=== PATIENT | female | born 1940 | race Caucasian/White ===

== ENCOUNTER 2017-11-14 10:57 | Emergency (ER) | payer MEDICARE, BC ==
--- NOTE | 2017-11-14 11:21 | ERNOTE ---
Medical Problem HPI - Narrative Date of Service: 11/14/17 - General Chief Complaint: General Assessment Time Seen by Provider: 11/14/17 15:05 Source: patient Exam Limitations: no limitations - Immun/Allergies/Home Medications Immunizations: IMMUNIZATION HX Immunizations Up to Date Yes History of Influenza Vaccine Yes Hx Pneumococcal Vaccination Yes Allergies/Adverse Reactions: Allergies penicillin G Allergy (Severe, Verified 11/14/17 11:08) Anaphylaxis Cephalosporins Adverse Reaction (Mild, Verified 11/14/17 11:08) SKIN TINGLY AND SENSITIVE Sulfa (Sulfonamide Antibiotics) Adverse Reaction (Mild, Verified 11/14/17 11:08) SENSITIVE SKIN Home Medications: HOME MEDICATIONS Omeprazole Magnesium [Prilosec Otc] 20 mg PO DAILY 10/13/14 [Last Taken Unknown] Escitalopram Oxalate [Lexapro] 10 mg PO DAILY 11/14/14 [Last Taken Unknown] ALPRAZolam [Xanax] 1 - 2 tab PO TID PRN 10/21/15 [Last Taken Unknown] Cyanocobalamin [Vitamin B-12] 1,000 mcg IJ Q30D 10/21/15 [Last Taken Unknown] Levothyroxine Sodium [Synthroid] 75 mcg PO DAILY 10/21/15 [Last Taken Unknown] Loperamide HCl [Imodium] 2 mg PO PRN PRN 10/21/15 [Last Taken Unknown] Acetaminophen [Tylenol] 500 mg PO Q6H PRN 01/17/16 [Last Taken Unknown] Ferrous Sulfate [Iron] 325 mg PO TID 11/14/17 [Last Taken Unknown] traMADol HCL [Ultram] 50 mg PO QID PRN 11/14/17 [Last Taken Unknown] - History of Present History Narrative: patient referred from clinic with symptoms of right calf swelling and hemoptysis , 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 hemoptysis has been better the last few weeks Timing: constant, intermittent Severity: moderate Modifying Factors - (Improves): Present: rest Modifying Factors - (Worsens): Present: movement Review of Systems - Narrative Narrative: patient appears in no acute dstress - Review of Systems Constitutional: Present: See HPI EYE: Present: no symptoms reported ENT: Present: no symptoms reported, sore throat Respiratory: Present: shortness of breath, other - hemoptysis Cardiology: Present: no symptoms reported Gastrointestinal/Abdominal: Present: no symptoms reported Genitourinary: Present: no symptoms reported Musculoskeletal: Present: no symptoms reported Skin: Present: no symptoms reported Neurological: Present: no symptoms reported Endocrine: Present: no symptoms reported Hematologic/Lymphatic: Present: no symptoms reported Psych: Present: no symptoms reported All Other Systems: All systems neg except as marked - Narrative Narrative: unremarkable - Patient's Past Medical History Patient History - Medical: Anemia, Anxiety, Depression, GERD, Osteoporosis, UTI' S, Other - laryngeal ca Patient History - Cardiac/Respiratory: COPD Patient History - Cancer: Throat Patient History - Surgical Procedures: Colonoscopy, Other Patient History - Other: None LMP (females 10-50): Menopausal - Family History Family History:: no untoward family reactions to anesthesia, no familial bleeding tendencies, no family history of clotting disorders, no family history of premature - Family History mom Family History - Medical: Family History - Cardiac/Respiratory: No pertinent hx Family History - Cancer: No pertinent family hx dad Family History - Medical: Family History - Cardiac/Respiratory: No pertinent hx Family History - Cancer: No pertinent family hx - Social History Living Situations: home Abuse History: No History of abuse Psych History: Hx of Anxiety, Hx of Depression Smoking Status: Former smoker Have you smoked in the past 12 months: No Do you dip or chew tobacco: No Patient requests Smoking Cessation Consult: No Initiate information on Smoking Cessation: No Alcohol Use: none Drug Use: none - Immunizations Immunizations Up to Date: Yes Hx Pneumococcal Vaccination: Yes History of Influenza Vaccine: Yes Physical Exam - Physical Exam General Appearance: Present: mild distress Head Exam: Present: normal inspection, no evidence of injury Eye Exam: Normal inspection: bilateral, PERRL: bilateral, EOMI: bilateral Ears, Nose, Throat: Present: normal ENT inspection, other - tracheostomy Neck: Present: other - tracheostomy Respiratory: Present: no respiratory distress, normal breath sounds, no accessory muscle use, chest nontender, lungs clear Peripheral Pulses: N=norm/S=strong/W=weak/B=bound/A=absent: Carotid (R): Normal , Carotid (L): Normal, Radial (R): Normal, Radial (L): Normal, Femoral (R): Normal, Femoral (L): Normal, Dorsalis-pedis (R): Normal, Dorsalis-pedis (L): Normal Gastrointestinal/Abdominal: Present: normal bowel sounds, nontender, nondistended, soft, no organomegaly Back Exam: Present: normal inspection, normal range of motion, no CVA tenderness , no vertebral tenderness Extremity Exam: Present: extremity edema - right calf Neurological Exam: Present: alert, oriented, normal mood/affect, no motor/ sensory deficits DTR: N=norm/NB=norm/brisk/A=abs/DD=dull/dimin/HC=hyperactive: Bicep (R): Normal , Bicep (L): Normal, Tricep (R): Normal, Tricep (L): Normal, Knee (R): Normal, Knee (L): Normal, Ankle (R): Normal, Ankle (L): Normal Skin Exam: Present: normal color, warm/dry Lymphatic Exam: Present: no adenopathy ED Progress - Date and Time Seen: Date and Time: 11/14/17 15:00 improved discuss results of labs and radiology reports,to be dismissed - Vital Signs Vital Signs: Vital Signs 11/14/17 11/14/17 11:03 11:08 Temperature 36.2 C L 36.2 C L Pulse Rate 79 79 Respiratory 14 14 Rate Blood Pressure 110/61 110/61 O2 Sat by Pulse 95 95 Oximetry - EKG EKG: NSR EKG read: Interp. by me - CT/Ultrasound CT/Ultrasound Narrative: ct negative, us no dvt - Progress/Reassessment Chief Complaint: General Assessment Progress:: Pain free at discharge - Transfer of Care Expected Disposition: Discharge Plan - Plan Plan: to be discharged, Departure Clinical Impression: Shortness of breath dyspnea, Hemoptysis, unspecified - Departure Disposition: Home Follow Up Needed Condition: Fair Instructions: Hemoptysis, [id number], Tracheostomy Referrals: Graciela Leal DO [Primary Care Provider] -
[2017-11-14 11:50] LABS: Hematocrit 36.3 % (37.0-47.0); Hemoglobin 12.3 gm/dL (12.5-16.0); Mean Cell Volume 76.7 fl (78-100); Mean Corpuscular Hgb Conc 33.9 g/dl (32-36); Mean Platelet Volume 11.8 fl (6.0-9.5); Neutrophil # 5.3 K/mm3 (1.3-6.0); Neutrophil % 71.1 % (42-75.0); Platelet Count 172 K/mm3 (150-450); Red Blood Count 4.73 M/mm3 (4.2-5.4); Red Cell Distribution Width 14.6 % (11.5-14.0); White Blood Count 7.5 K/mm3 (4.0-10.5)
[2017-11-14 12:04] LABS: Partial Thrombolplastin Time 23.1 Seconds (24-32)
[2017-11-14 12:07] LABS: Troponin I Less than 0.017 ng/ml (0.00-0.10)
[2017-11-14 12:11] LABS: BNP * 79 pg/mL (5-550)
[2017-11-14 13:04] LABS: Albumin * 3.4 gm/dl (3.4-5.0); Anion Gap 12.7 mmol/L (6.8-13.8); BUN/Creatinine Ratio 9.3 (9.0-21.6); Bilirubin, Total 0.2 mg/dL (0.0-1.1); Ca. Corrected For Albumin 8.7 mg/dL (8.4-10.2); Calcium * 8.5 mg/dL (7.9-10.9); Carbon Dioxide 25.5 mmol/L (24-32.6); Potassium 4.2 mmol/L (3.4-4.6); Total Protein 6.9 gm/dL (6.2-8.2)
[2017-11-14 13:57] VITALS: BP 112/64
== END 2017-11-14 15:11 | disposition home or self-care (01) ==
LOC: ER 10:57
DX: R06.00 Dyspnea, unspecified (principal); R04.2 Hemoptysis; D64.9 Anemia, unspecified; K21.9 Gastro-esophageal reflux disease without esophagitis; J44.9 Chronic obstructive pulmonary disease, unspecified; Z85.21 Personal history of malignant neoplasm of larynx

== ENCOUNTER 2019-03-09 19:51 | Observation (INO) ==
[2019-03-09] MEDS ORDERED: ALBUTEROL SULFATE 2.5 MG/0.5 ML VIAL.NEB IH ONE (20:07)
--- NOTE | 2019-03-09 20:11 | ERNOTE ---
Medical Problem HPI - Narrative Date of Service: 03/09/19 - General Chief Complaint: General Assessment Time Seen by Provider: 03/09/19 19:55 Source: patient - Immun/Allergies/Home Medications Immunizations: IMMUNIZATION HX Immunizations Up to Date Yes History of Influenza Vaccine Yes Hx Pneumococcal Vaccination Yes Allergies/Adverse Reactions: Allergies penicillin G Allergy (Severe, Verified 03/09/19 19:55) Anaphylaxis Cephalosporins Adverse Reaction (Mild, Verified 03/09/19 19:55) SKIN TINGLY AND SENSITIVE Sulfa (Sulfonamide Antibiotics) Adverse Reaction (Mild, Verified 03/09/19 19:55) SENSITIVE SKIN prednisone Adverse Reaction (Verified 03/09/19 19:55) hallucination Home Medications: HOME MEDICATIONS Cyanocobalamin [Vitamin B-12] 1,000 mcg IJ Q30D 10/21/15 [Last Taken Unknown] dextran 70-hypromellose (PF) 0.1 %-0.3 % eye drops in a dropperette 1 drp OP 4- 6XD PRN 05/12/18 [Last Taken Unknown] ferrous sulfate 325 mg (65 mg iron) tablet 325 mg PO TID tab 05/12/18 [Last Taken Unknown] tramadol 50 mg tablet See Rx Instructions PO QID PRN tab 05/12/18 [Last Taken Unknown] loratadine 10 mg tablet 10 mg PO DAILY #30 tab 05/29/18 [Last Taken Unknown] triamcinolone acetonide 0.5 % topical ointment 1 applic TP DAILY #15 g 05/29/18 [Last Taken Unknown] white petrolatum 41 % topical ointment 1 applic TP DAILY PRN #99 g 05/29/18 [Last Taken Unknown] Silver Sulfadiazine [Silvadene] 1 appl TP DAILY #85 gm 07/04/18 [Last Taken Unknown] oxyCODONE HCL/ACETAMINOPHEN [Percocet 5 MG/325 MG] 1 tab PO Q4H PRN 5 Days #20 tab 07/04/18 [Last Taken Unknown] alprazolam 0.25 mg tablet See Rx Instructions .ROUTE .COMPLEX PRN #90 tab 12/09/18 [Last Taken Unknown] levothyroxine 75 mcg tablet 75 mcg PO DAILY #30 tab 12/09/18 [Last Taken Unknown] Clobetasol Propionate/Emoll [Clobetasol Emollient 0.05% Crm] 1 gm TOPICAL DAILY PRN #1 cream..g. 01/02/19 [Last Taken Unknown] escitalopram 10 mg tablet 10 mg PO DAILY #90 tab 02/25/19 [Last Taken Unknown] omeprazole magnesium 20 mg tablet,delayed release 20 mg PO DAILY #90 tab 02/25/19 [Last Taken Unknown] HYDROcodone/ACETAMINOPHEN [[place] 5-325] 1 tab PO Q6H PRN #12 tab 03/06/19 [Last Taken Unknown] - History of Present History Narrative: 78-year-old female well-known to the emergency department chronic trach patient. She reports she had generally decreased energy throughout the day today. She took a nap and when she woke up she felt like she could not get a deep breath. She has had a tracheostomy plug multiple times. She got to the ER and was able to actually cough out a bunch of mucus and feels better. No other complaints besides decreased energy and the coughing. No fever. Review of Systems - Review of Systems Constitutional: Present: fatigue EYE: Present: no symptoms reported ENT: Present: no symptoms reported Respiratory: Present: shortness of breath Cardiology: Present: no symptoms reported Gastrointestinal/Abdominal: Present: no symptoms reported Genitourinary: Present: no symptoms reported Musculoskeletal: Present: no symptoms reported Skin: Present: no symptoms reported Neurological: Present: no symptoms reported Endocrine: Present: no symptoms reported Hematologic/Lymphatic: Present: no symptoms reported Psych: Present: no symptoms reported All Other Systems: All systems neg except as marked Medical History (Updated 03/08/19 @ 14:27 by Wilfred Villarreal MD) Abnormal CT of the abdomen (Resolved) Abnormal CT scan, colon (Resolved) GERD (gastroesophageal reflux disease) (Chronic) Anemia, B12 deficiency Onset Date: 2012 Anxiety Onset Date: 06/20/13 COPD (chronic obstructive pulmonary disease) Onset Date: 2012 Depression Onset Date: 06/20/13 GERD (gastroesophageal reflux disease) Onset Date: 06/20/13 Hypothyroid Onset Date: 06/20/13 Iron deficiency anemia Onset Date: 02/15/17 Obesity Onset Date: Unknown Osteoporosis Onset Date: Unknown Psoriasis Onset Date: 02/15/17 Vitamin B12 deficiency Onset Date: 06/20/13 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 Surgical History: Surgical History (Updated 01/14/19 @ 16:09 by KORINA Hoyos) Tracheostomy in place Onset Date: 2005 Tracheostomy status Onset Date: 2005 throat caner treated with radiation. History of colonoscopy Onset Date: ~07/05/[id number]. 10/29/15 [place]-normal. Recheck 5 yrs. 07/05/18 Porter-external hemorrhoids, diverticulosis. No follow up. History of esophagogastroduodenoscopy (EGD) Onset Date: 07/05/18 [place]-clotest negative, hiatal hernia, minimal benign reactive gastropathy/chemical gastritis. History of excision of lesion Onset Date: 07/26/18 Henrich-upper lip-skin cancer History of flexible sigmoidoscopy Onset Date: 06/18/07 Dr. Fox History of incision and drainage Onset Date: 12/25/11 Dr. 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 Unaware of any health issues Healthy adult Uncle Colon cancer 2 uncles-colon cancer-both diagnosed age 60's Grandfather Colon cancer Social History: Preferred Language Mexican Do you have any scientology or No cultural preference? Smoking Status Former smoker Abuse History No History of abuse Psych History Hx of Anxiety,Hx of Depression Alcohol Use sober Drug Use none (Last Updated 02/25/19 @ 16:24 by Mary Jo Wilde MD) No Social History Section defined Physical Exam - Physical Exam General Appearance: Present: wd/wn, alert, other - Sitting up in bed talking through fenestrated trach Head Exam: Present: normal inspection, no evidence of injury Eye Exam: Normal inspection: bilateral, PERRL: bilateral Ears, Nose, Throat: Present: normal ENT inspection, other - Mucous membranes are moist. The patient has healing ecchymoses periorbitally. No CSF otorrhea or rhinorrhea. No hemotympanum. These bruises have faded to essentially nothing now. Little bit of swelling still. Neck: Present: other - Does not have a collar. No JVD. Able to move her neck without a great deal of discomfort Respiratory: Present: other - Patient has frequent coughing. Rare wheezes which are scattered. No rhonchi Cardiovascular/Chest: Present: regular rate, rhythm, no murmur Gastrointestinal/Abdominal: Present: normal bowel sounds, nontender, nondistended, soft Back Exam: Present: normal inspection, normal range of motion Extremity Exam: Present: normal inspection, non-tender, normal range of motion, no edema Neurological Exam: Present: alert, oriented, normal mood/affect, no motor/sensory deficits Skin Exam: Present: normal color Lymphatic Exam: Present: no adenopathy Progress - Results and Orders Patient's Lab Results:: I have reviewed the patient's lab results. - Vital Signs Patient's Vital Signs:: I have reviewed the patient's vital signs. Vital Signs: Vital Signs 03/09/19 19:55 Temperature 36.5 C Pulse Rate 98 Respiratory Rate 22 H Blood Pressure 110/69 O2 Sat by Pulse Oximetry 95 - X-Ray X-Ray #1 X-Ray: chest Interpretation: Interp. by me X-ray Comments: Chest x-ray is performed and compared to yesterday's chest x-ray. There is perhaps a bit more prominence of vessels and parenchyma near the right middle lobe. Essentially unchanged otherwise. - Progress/Reassessment Chief Complaint: General Assessment Progress:: Improved Progress Note-Subjective: 03/09/19 21:33 Patient received a breathing treatment and anxiety medicine. She says she feels a bit better. With a low PaO2 and the frequent visits to the ER, I am worried that she is a set up for returning. I talked to Dr. Anna Siegel and will admit the patient overnight. Continue with breathing treatments and steroids. Suctioning aggressively. Attempt to find placement for her tomorrow. Plan - Plan Plan: The patient previously had a significant gap on electrolytes done about a week ago. She says she has been more fatigued and has been falling over the last 6 weeks. She is scheduled to get a rn cardiac cath Holter monitor tomorrow by cardiology. I think checking a blood gas would be appropriate. The patient says that she has been having more trouble recently going back and forth from home to the hospital with problems. She would like to consider placement in a halfway/assisted living in [place] where she has been before for a month to get stronger. I told her we will check the labs x-ray and gas and see what shows up. Certainly if there is a reason we will admit her to the hospital. Otherwise she is can have to work on getting this as an outpatient Departure Clinical Impression: Hypoxia - Departure Disposition: Short Term Hospital Inpatient Condition: Fair Referrals: Mary Jo Wilde MD [Primary Care Provider] -
[2019-03-09 20:27] LABS: Hematocrit 34.8 % (37.0-47.0); Hemoglobin 11.3 gm/dL (12.5-16.0); Mean Cell Volume 74.8 fl (78-100); Mean Corpuscular Hemoglobin 24.3 pg (27-31); Mean Corpuscular Hgb Conc 32.5 g/dl (32-36); Mean Platelet Volume 11.2 fl (8-12.5); Neutrophil # 3.7 K/mm3 (1.3-6.0); Neutrophil % 59.1 % (42-75.0); Platelet Count 162 K/mm3 (150-450); Red Blood Count 4.65 M/mm3 (4.2-5.4); White Blood Count 6.2 K/mm3 (4.0-10.5)
[2019-03-09 20:45] LABS: Anion Gap 17.4 mmol/L (6.8-13.8); BUN/Creatinine Ratio 6.4 (9.0-21.6); Calcium * 8.8 mg/dL (7.9-10.9); Estimated Creat Clear 28.1; Potassium 3.4 mmol/L (3.4-4.6)
[2019-03-09] MEDS ORDERED: LORazepam 2 MG/ML DISP.SYRIN IV ONE (20:51)
--- NOTE | 2019-03-10 11:25 | HP ---
Chief Complaint - Chief Complaint Date of Service: 03/10/19 Time of Service: 09:06 Chief Complaint: SOB History of Present Illness: 78-year-old female with a past medical history of COPD, anxiety, GERD, hypothyroidism, obesity, throat cancer status post radiation and tracheostomy placement presents from home with complaints of shortness of breath. She has had multiple visits to the emergency department with similar complaints in the past few weeks. In the ER she was found to have mucous plug and was suctioned with good relief of her symptoms. She was admitted for shortness of breath. She also wants help at home due to frequent falling. Medical History (Updated 03/10/19 @ 11:25 by Mary Jo Wilde MD) Abnormal CT of the abdomen (Resolved) Abnormal CT scan, colon (Resolved) GERD (gastroesophageal reflux disease) (Chronic) Anemia, B12 deficiency Onset Date: 2012 Anxiety Onset Date: 06/20/13 COPD (chronic obstructive pulmonary disease) Onset Date: 2012 Depression Onset Date: 06/20/13 GERD (gastroesophageal reflux disease) Onset Date: 06/20/13 Hypothyroid Onset Date: 06/20/13 Iron deficiency anemia Onset Date: 02/15/17 Obesity Onset Date: Unknown Osteoporosis Onset Date: Unknown Psoriasis Onset Date: 02/15/17 Vitamin B12 deficiency Onset Date: 06/20/13 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 Surgical History: Surgical History (Updated 01/14/19 @ 16:09 by KORINA Hoyos) Tracheostomy in place Onset Date: 2005 Tracheostomy status Onset Date: 2005 throat caner treated with radiation. History of colonoscopy Onset Date: ~07/05/18 [id number]. 10/29/15 [place]-normal. Recheck 5 yrs. 07/05/18 Porter-external hemorrhoids, diverticulosis. No follow up. History of esophagogastroduodenoscopy (EGD) Onset Date: 07/05/18 [place]-clotest negative, hiatal hernia, minimal benign reactive gastropathy/chemical gastritis. History of excision of lesion Onset Date: 07/26/18 Henrich-upper lip-skin cancer History of flexible sigmoidoscopy Onset Date: 06/18/07 Dr. Fox History of incision and drainage Onset Date: 12/25/11 Dr. 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 Unaware of any health issues Healthy adult Uncle Colon cancer 2 uncles-colon cancer-both diagnosed age 60's Grandfather Colon cancer Social History: Patient Lives/Resources Home Utilized Preferred Language Armenian Do you have any bahai or No cultural preference? Smoking Status Former smoker Have you smoked in the past 12 No months Do you dip or chew tobacco No Abuse History No History of abuse Psych History Hx of Anxiety,Hx of Depression Alcohol Use sober Drug Use none (Last Updated 02/25/19 @ 16:24 by Mary Jo Wilde MD) No Social History Section defined Review Of Systems (GEN) - Review of Systems Generalized/Overall Review: Absent: Chills, Fever EENTM: Absent: Eye Pain, Ear Pain Respiratory: Absent: Shortness of Breath Cardiac: Absent: Chest Pain Abdominal: Absent: Abdominal Pain Misc: All systems neg except as marked Immunizations: IMMUNIZATION HX Immunizations Up to Date Yes History of Influenza Vaccine Yes Hx Pneumococcal Vaccination Yes Allergies/Adverse Reactions: Allergies Allergy/AdvReac Type Severity Reaction Status Date / Time penicillin G Allergy Severe Anaphylaxis Verified 03/09/19 23:27 Sulfa (Sulfonamide Allergy Mild SENSITIVE Verified 03/09/19 23:27 Antibiotics) SKIN Cephalosporins AdvReac Mild SKIN Verified 03/09/19 23:27 TINGLY AND SENSITIVE prednisone AdvReac hallucinati Verified 03/09/19 23:27 on Home Medications: HOME MEDICATIONS levothyroxine 75 mcg tablet 75 mcg PO DAILY #30 tab 12/09/18 [Last Taken Unknown] Clobetasol Propionate/Emoll [Clobetasol Emollient 0.05% Crm] 1 gm TOPICAL DAILY PRN #1 cream..g. 01/02/19 [Last Taken Unknown] escitalopram 10 mg tablet 10 mg PO DAILY #90 tab 02/25/19 [Last Taken Unknown] omeprazole magnesium 20 mg tablet,delayed release 20 mg PO DAILY #90 tab 02/25/19 [Last Taken Unknown] HYDROcodone/ACETAMINOPHEN [[place] 5-325] 1 tab PO Q6H PRN #12 tab 03/06/19 [Last Taken Unknown] Ketoconazole [Nizoral Cream] 1 appl TOPICAL BID 03/10/19 [Last Taken Unknown] Mometasone Furoate 15 gm TOPICAL BID 03/10/19 [Last Taken Unknown] Exam - Exam Vital Signs: Vital Signs - Last Taken Temp 37.0 C 03/10/19 10:00 Pulse 78 03/10/19 10:00 Resp 18 03/10/19 10:00 BP 101/59 03/10/19 10:00 Pulse Ox 97 03/10/19 10:00 Constitutional: Present: Alert, Cooperative, Well developed, No distress, Elderly, Obese ENT Exam: Present: hearing grossly normal Eye Exam: bilateral eye: normal inspection Neck: Present: non-tender, trachea midline - Tracheostomy in place Back Exam: Present: normal inspection Respiratory: Present: lungs clear, no accessory muscle use, No wheezing. Absent: crackles, rhonchi Cardiovascular/Chest: Present: regular rate, rhythm, no edema Peripheral Pulses: dorsalis-pedis (R): 1+, dorsalis-pedis (L): 1+ Abdomen: Present: Normal bowel sounds, soft, nontender Extremity: Present: no pedal edema Skin Exam: Present: normal color, warm/dry Neurologic: Present: alert, normal mood/affect Appearance: Present: appropriate appearance Eye contact: Present: cooperative Thoughts: Present: normal thought pattern, normal mood /affect Diagnostic Studies: Abnormal Lab Results 03/09/19 03/09/19 03/09/19 Range/Units 20:07 20:25 20:25 Hgb 11.3 L (12.5-16.0) gm/dL Hct 34.8 L (37.0-47.0) % MCV 74.8 L (78-100) fl MCH 24.3 L (27-31) pg RDW 17.0 H (11.5-14.0) % Eosinophils % 7.7 H (0.0-3.0) % Basophils % 1.6 H (0.0-1.0) % Lymphocytes # 1.48 L (1.5-3.5) k/mm3 pCO2 27.8 L (32.0-45.0) mmHg pO2 64.5 L (83.0-108.0) mmHg HCO3 18.0 L (21.0-28.0) mmol/L Total CO2 18.8 L (19.0-24.0) mmol/L Base Excess -5.0 L (-2.0-3.0) mmol/L ABG O2 Sat (Measured) 93.5 L (94.0-98.0) % Carbon Dioxide 21.0 L (24-32.6) mmol/L Anion Gap 17.4 H (6.8-13.8) mmol/L Creatinine 1.41 H (0.4-1.4) mg/dL Est GFR (Non-Af Amer) 39 L D (60-130) mL/min BUN/Creatinine Ratio 6.4 L (9.0-21.6) Random Glucose 156 H (70-110) mg/dL Laboratory Results WBC 6.2 K/mm3 (4.0-10.5) 03/09/19 20:25 RBC 4.65 M/mm3 (4.2-5.4) 03/09/19 20:25 Hgb 11.3 gm/dL (12.5-16.0) L 03/09/19 20:25 Hct 34.8 % (37.0-47.0) L 03/09/19 20:25 MCV 74.8 fl (78-100) L 03/09/19 20:25 MCH 24.3 pg (27-31) L 03/09/19 20:25 MCHC 32.5 g/dl (32-36) 03/09/19 20:25 RDW 17.0 % (11.5-14.0) H 03/09/19 20:25 Plt Count 162 K/mm3 (150-450) 03/09/19 20:25 MPV 11.2 fl (8-12.5) 03/09/19 20:25 Immature Gran % (Auto) 0.20 % (0.001-0.429) 03/09/19 20:25 Immature Gran # (Auto) 0.01 K/mm3 (0.000-0.0310) 03/09/19 20:25 59.1 % (42-75.0) 03/09/19 20:25 23.7 % (20-51) 03/09/19 20:25 7.7 % (0.0-9) 03/09/19 20:25 7.7 % (0.0-3.0) H 03/09/19 20:25 1.6 % (0.0-1.0) H 03/09/19 20:25 Nucleated RBC % 0.0 k/mm3 (0-1) 03/09/19 20:25 3.7 K/mm3 (1.3-6.0) 03/09/19 20:25 1.48 k/mm3 (1.5-3.5) L 03/09/19 20:25 0.5 k/mm3 (0.0-1.0) 03/09/19 20:25 0.5 k/mm3 (0.0-0.7) 03/09/19 20:25 Absolute Basophils 0.1 k/mm3 (0.0-0.1) 03/09/19 20:25 pCO2 27.8 mmHg (32.0-45.0) L 03/09/19 20:07 pO2 64.5 mmHg (83.0-108.0) L 03/09/19 20:07 HCO3 18.0 mmol/L (21.0-28.0) L 03/09/19 20:07 Total CO2 18.8 mmol/L (19.0-24.0) L 03/09/19 20:07 Base Excess -5.0 mmol/L (-2.0-3.0) L 03/09/19 20:07 ABG pH 7.43 (7.35-7.45) 03/09/19 20:07 ABG O2 Sat (Measured) 93.5 % (94.0-98.0) L 03/09/19 20:07 Sodium 135 mmol/L (132-142) 03/09/19 20:25 136 mmol/L (130-142) 03/09/19 20:25 Potassium 3.4 mmol/L (3.4-4.6) 03/09/19 20:25 Chloride 100 mmol/L (97-106) 03/09/19 20:25 Carbon Dioxide 21.0 mmol/L (24-32.6) L 03/09/19 20:25 17.4 mmol/L (6.8-13.8) H 03/09/19 20:25 BUN 9 mg/dL (3-23) 03/09/19 20:25 1.41 mg/dL (0.4-1.4) H 03/09/19 20:25 Est GFR (Non-Af Amer) 39 mL/min (60-130) L D 03/09/19 20:25 6.4 (9.0-21.6) L 03/09/19 20:25 156 mg/dL (70-110) H 03/09/19 20:25 Calcium 8.8 mg/dL (7.9-10.9) 03/09/19 20:25 Assessment/Plan - Narrative Narrative: 78-year-old female with a past medical history of COPD, anxiety, GERD, hypothyroidism, obesity, throat cancer status post radiation and tracheostomy placement presents from home with complaints of shortness of breath. She has had multiple visits to the emergency department with similar complaints in the past few weeks. In the ER she was found to have mucous plug and was suctioned with good relief of her symptoms. She was admitted for shortness of breath and for potential placement in the group home/assisted living. - Assessment/Plan (1) Shortness of breath at rest Assessment: She presented to the emergency department with shortness of breath and was found to have a mucous plug that resolved with coughing and suction. Problem: Resolved (2) Hypothyroid Problem: Chronic Qualifiers: Hypothyroidism type: acquired Qualified Code(s): E03.9 - Hypothyroidism, unspecified (3) Tracheostomy dependent Problem: Chronic (4) GERD (gastroesophageal reflux disease) Problem: Chronic Qualifiers:
--- NOTE | 2019-03-10 14:18 | DS ---
(1) Shortness of breath at rest Problem: Resolved (2) Hypothyroid Problem: Chronic Qualifiers: Hypothyroidism type: acquired Qualified Code(s): E03.9 - Hypothyroidism, unspecified (3) Tracheostomy dependent Problem: Chronic (4) GERD (gastroesophageal reflux disease) Problem: Chronic Qualifiers: Description of Stay: 78-year-old female with a past medical history of COPD, anxiety, GERD, hypothyroidism, obesity, throat cancer status post radiation and tracheostomy placement presents from home with complaints of shortness of breath. She has had multiple visits to the emergency department with similar complaints in the past few weeks. In the ER she was found to have mucous plug and was suctioned with good relief of her symptoms. She was admitted for shortness of breath. Her symptoms resolved after the mucous plug was suctioned out of her trach. She was determined to need home health services. Marina Cordova is confined to the home due to weakness, difficulty ambulating and frequent falls. The need for nursing home is for a medication education and management and trach monitoring. The need for physical therapy is for strengthening, endurance, gait and balance issues and mobility issues. The need for home health care skilled services is directly related to the time spent [id number] with the person. Procedures Performed: none Results and Findings: Lab Pending Results 03/09/19 20:07: pCO2 27.8 L, pO2 64.5 L, HCO3 18.0 L, Total CO2 18.8 L, Base Excess -5.0 L, ABG pH 7.43, ABG O2 Sat (Measured) 93.5 L 03/09/19 20:25: WBC 6.2, RBC 4.65, Hgb 11.3 L, Hct 34.8 L, MCV 74.8 L, MCH 24.3 L, MCHC 32.5, RDW 17.0 H, Plt Count 162, MPV 11.2, Immature Gran % (Auto) 0.20, Immature Gran # (Auto) 0.01, Neutrophils % 59.1, Lymphocytes % 23.7, Monocytes % 7.7, Eosinophils % 7.7 H, Basophils % 1.6 H, Nucleated RBC % 0.0, Neutrophils # 3.7, Lymphocytes # 1.48 L, Monocytes # 0.5, Eosinophils # 0.5, Absolute Basophils 0.1 03/09/19 20:25: Sodium 135, Plasma Sodium 136, Potassium 3.4, Chloride 100, Carbon Dioxide 21.0 L, Anion Gap 17.4 H, BUN 9, Creatinine 1.41 H, Est GFR (Non- Af Amer) 39 L D, BUN/Creatinine Ratio 6.4 L, Random Glucose 156 H, Calcium 8.8 Discharge Location: Home [facility]position: [facility] Home Health Condition: Fair Discharge Activity: Activity as tolerated Discharge Diet: General/regular food Referrals: Mary Jo Wilde MD [Primary Care Provider] - Problem Oriented Discharge Instructions to Patient/Family: Hyperventilation, Hypoxemia Additional Patient Instructions (free text): - Follow up with Dr. Wilde 03/18 at 1:00pm. [facility]. Nursing, bath aide, PT. Please call report and fax orders upon discharge. Complete Home Medications List: Complete Home Medication List: levothyroxine 75 mcg tablet 75 mcg PO DAILY #30 tab 12/09/18 Clobetasol Propionate/Emoll [Clobetasol Emollient 0.05% Crm] 1 gm TOPICAL DAILY PRN #1 cream..g. 01/02/19 escitalopram 10 mg tablet 10 mg PO DAILY #90 tab 02/25/19 omeprazole magnesium 20 mg tablet,delayed release 20 mg PO DAILY #90 tab 02/25/19 HYDROcodone/ACETAMINOPHEN [[place] 5-325] 1 tab PO Q6H PRN #12 tab 03/06/19 Ketoconazole [Nizoral Cream] 1 appl TOPICAL BID 03/10/19 Mometasone Furoate 15 gm TOPICAL BID 03/10/19
[2019-03-10 16:45] VITALS: BP 155/74
== END 2019-03-10 16:20 | disposition home health service (06) ==
LOC: ER 19:51 → MS 19:51
PROVIDERS: ADMIT Family Medicine; ATTEND Internal Medicine
CPT/HCPCS: 36415; 36600; 71010; 71045; 80048; 82803; 85025; 94640; 94664; 96374; 99285; G0378

== ENCOUNTER 2020-05-04 20:58 | Observation (INO) ==
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
[2020-05-04 21:37] LABS: Hematocrit 36.3 % (37.0-47.0); Hemoglobin 12.3 gm/dL (12.5-16.0); Mean Cell Volume 79.4 fl (78-100); Mean Corpuscular Hemoglobin 26.9 pg (27-31); Mean Corpuscular Hgb Conc 33.9 g/dl (32-36); Mean Platelet Volume 11.4 fl (8-12.5); Neutrophil # 5.6 K/mm3 (1.3-6.0); Neutrophil % 69.6 % (42-75.0); Platelet Count 156 K/mm3 (150-450); Red Blood Count 4.57 M/mm3 (4.2-5.4); Red Cell Distribution Width 14.3 % (11.5-14.0)
[2020-05-04 21:59] LABS: ALT 23 U/L (19-67); AST 15 U/L (0-48); Albumin * 3.3 gm/dl (3.4-5.0); Alkaline Phosphatase * 106 U/L (50-170); BNP * 171 pg/mL (5-550); BUN/Creatinine Ratio 12.5 (9.0-21.6); Bilirubin, Total 0.2 mg/dL (0.0-1.1); Blood Urea Nitrogen 15 mg/dL (3-23); Ca. Corrected For Albumin 9.1 mg/dL (8.4-10.2); Calcium * 8.9 mg/dL (7.9-10.9); Carbon Dioxide 23.4 mmol/L (24-32.6); Chloride 102 mmol/L (97-106); Glucose * 117 mg/dL (70-110); Potassium 3.4 mmol/L (3.4-4.6); Sodium 136 mmol/L (132-142); Troponin I Less than 0.017 ng/mL (0.00-0.10)
[2020-05-04] MEDS ORDERED: ACETAMINOPHEN 1,000 MG/100 ML BTL IV ONE (22:18)
[2020-05-04] MEDS ORDERED: NORMAL SALINE 1,000 ML IV ONE (22:19)
[2020-05-05] MEDS ORDERED: LEVOFLOXACIN IN DEXTROSE 5 % 500 MG/100 ML BAG IV SCH (01:30)
[2020-05-05] MEDS ORDERED: LEVOTHYROXINE SODIUM 75 MCG TABLET PO SCH (09:45)
[2020-05-05] MEDS ORDERED: ESCITALOPRAM OXALATE 10 MG TAB PO SCH (09:45)
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
[2020-05-05 10:09] VITALS: BP 111/43
== END 2020-05-05 11:00 | disposition home or self-care (01) ==
LOC: MS 20:58 → ER 20:58 → MS 05-05 02:05
PROVIDERS: ADMIT Internal Medicine; ATTEND Internal Medicine
CPT/HCPCS: 36415; 71275; 80053; 83519; 83605; 83880; 84484; 85025; 85379; 87040; 93005; 94760; 96365; 96367; 99285; G0378; J0131; Q9967

== ENCOUNTER 2020-05-12 20:04 | Observation (INO) ==
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
[2020-05-12 20:53] LABS: Hematocrit 36.2 % (37.0-47.0); Hemoglobin 11.9 gm/dL (12.5-16.0); Mean Cell Volume 81.3 fl (78-100); Mean Corpuscular Hemoglobin 26.7 pg (27-31); Mean Corpuscular Hgb Conc 32.9 g/dl (32-36); Mean Platelet Volume 11.9 fl (8-12.5); Neutrophil # 13.4 K/mm3 (1.3-6.0); Neutrophil % 91.5 % (42-75.0); Platelet Count 145 K/mm3 (150-450); Red Blood Count 4.45 M/mm3 (4.2-5.4); Red Cell Distribution Width 14.7 % (11.5-14.0); White Blood Count 14.6 K/mm3 (4.0-10.5)
[2020-05-12 21:12] LABS: ALT 17 U/L (19-67); AST 15 U/L (0-48); Albumin * 3.2 gm/dl (3.4-5.0); Alkaline Phosphatase * 96 U/L (50-170); Anion Gap 15.8 mmol/L (6.8-13.8); BNP * 180 pg/mL (5-550); BUN/Creatinine Ratio 11.9 (9.0-21.6); Bilirubin, Total 0.3 mg/dL (0.0-1.1); Blood Urea Nitrogen 16 mg/dL (3-23); Ca. Corrected For Albumin 9.2 mg/dL (8.4-10.2); Calcium * 8.9 mg/dL (7.9-10.9); Carbon Dioxide 20.9 mmol/L (24-32.6); Chloride 103 mmol/L (97-106); Glucose * 149 mg/dL (70-110); Potassium 3.7 mmol/L (3.4-4.6); Sodium 136 mmol/L (132-142); Total Protein 6.7 gm/dL (6.2-8.2); Troponin I Less than 0.017 ng/mL (0.00-0.10)
[2020-05-12] MEDS ORDERED: ACETAMINOPHEN 325 MG TABLET PO ONE (21:36)
[2020-05-12] MEDS ORDERED: LEVOFLOXACIN IN DEXTROSE 5 % 500 MG/100 ML BAG IV SCH (22:45)
[2020-05-13] MEDS: ACETAMINOPHEN 325 MG TABLET PO PRN ×2 (07:02→17:46)
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
[2020-05-13] MEDS: ESCITALOPRAM OXALATE 10 MG TAB PO SCH (09:48)
[2020-05-13] MEDS: PANTOPRAZOLE SODIUM 20 MG TABLET.DR PO SCH (09:48)
--- NOTE | 2020-05-13 16:41 | DS ---
(1) Pneumonia Problem: Acute Qualifiers: Pneumonia type: due to unspecified organism Laterality: bilateral Lung location: lower lobe of lung Qualified Code(s): J18.9 - Pneumonia, unspecified organism (2) COPD (chronic obstructive pulmonary disease) Problem: Chronic (3) CKD (chronic kidney disease) stage 3, GFR 30-59 ml/min Problem: Chronic Date of Discharge:: 05/13/20 Hospital Course: Patient with past medical history of COPD with tracheostomy presented to the ER after having a fever at home. She developed uncontrollable shaking yesterday and her temperature is 101. On arrival to the ED, she was requiring oxygen via nonrebreather. Work-up showed opacities on her chest x-ray, pneumonia not excluded. Her appetite is decreased. She was febrile on arrival to the ED, with a temperature of 38.9. She describes having rigors. Chest x-ray suggested pneumonia and she did have an increased oxygen requirement initially. Negative COVID. She denied shortness of breath, cough, abdominal pain, diarrhea, dysuria, skin ulcers. The potential pneumonia being the only source for fever, she was started on Levaquin. COVID was negative. On admission exam, she reports her breathing is at its baseline. No abnormal lung sounds, and she is not requiring supplemental oxygen. Her oxygen requi rement was very brief, and she has been on room air since arriving to the floor. She felt comfortable going home on the afternoon of DC. Will DC home with Levaquin to complete a week's course. Procedures Performed: none Results and Findings: Lab Pending Results 05/12/20 20:44: WBC 14.6 H, RBC 4.45, Hgb 11.9 L, Hct 36.2 L, MCV 81.3, MCH 26.7 L, MCHC 32.9, RDW 14.7 H, Plt Count 145 L, MPV 11.9, Immature Gran % (Auto) 0.50 H, Immature Gran # (Auto) 0.07 H, Neutrophils % 91.5 H, Lymphocytes % 2.3 L, Monocytes % 2.9, Eosinophils % 2.3, Basophils % 0.5, Nucleated RBC % 0.0, Neutrophils # 13.4 H, Lymphocytes # 0.34 L, Monocytes # 0.4, Eosinophils # 0.3, Absolute Basophils 0.1 05/12/20 20:44: Sodium 136, Plasma Sodium 137, Potassium 3.7, Chloride 103, Carbon Dioxide 20.9 L, Anion Gap 15.8 H, BUN 16, Creatinine 1.35, Est GFR (Non- Af Amer) 40 L, BUN/Creatinine Ratio 11.9, Random Glucose 149 H, Calcium 8.9, Calcium Adj for Albumin 9.2, Total Bilirubin 0.3, AST 15, ALT 17 L, Alkaline Phosphatase 96, Troponin I Less than 0.017, B-Natriuretic Peptide 180, Total Protein 6.7, Albumin 3.2 L 05/12/20 20:44: Lactic Acid, Venous 3.1 H* 05/12/20 22:12: SARS-CoV-2 (PCR) Not detected 05/12/20 23:28: Lactic Acid, Venous 1.2 Discharge Location: Home Disposition: Home self-care Condition: Good Discharge Activity: Activity as tolerated Discharge Diet: General/regular food Referrals: Mary Jo Wilde MD [Primary Care Provider] - One Week Additional Patient Instructions (free text): Keep Dr Harp follow up appointment on June 03. Prescriptions (Any new or edited meds): Levofloxacin [Levaquin] 500 mg PO DAILY #6 tab Transmission Status: Pending to [facility], [place], [place] Complete Home Medications List: Complete Home Medication List: escitalopram oxalate 10 mg tablet 10 mg PO DAILY #90 tab 02/25/19 levothyroxine 75 mcg tablet 75 mcg PO DAILY #90 tab 12/08/19 ALPRAZolam PO DAILY PRN 05/13/20 Levofloxacin [Levaquin] 500 mg PO DAILY #6 tab 05/13/20 Omeprazole 20 mg PO DAILY 05/13/20
[2020-05-13] MEDS ORDERED: LEVOFLOXACIN 500 MG TABLET PO ONE ×2 (17:30→21:00)
[2020-05-13] MEDS ORDERED: ALPRAZolam 0.5 MG TABLET PO PRN (17:33)
[2020-05-13] MEDS ORDERED: LEVOFLOXACIN 250 MG TABLET ONE (20:45)
[2020-05-14] MEDS: ACETAMINOPHEN 325 MG TABLET PO PRN (02:54)
[2020-05-14] MEDS: PANTOPRAZOLE SODIUM 20 MG TABLET.DR PO SCH (07:45)
[2020-05-14] MEDS: ESCITALOPRAM OXALATE 10 MG TAB PO SCH (08:33)
[2020-05-14 14:29] VITALS: BP 97/50
== END 2020-05-14 13:20 | disposition home or self-care (01) ==
LOC: ER 20:04 → MS 23:23 → INTOOBSV 23:23 → MS 05-13 01:10
PROVIDERS: ADMIT Family Medicine; ATTEND Family Medicine
CPT/HCPCS: 36415; 71010; 71045; 80053; 83519; 83605; 83880; 84484; 85025; 87040; 93005; 94760; 96365; 96366; 99285; G0378

== ENCOUNTER 2020-11-17 16:15 | Inpatient (IN) ==
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
[2020-11-17 17:15] LABS: Albumin * 3.5 gm/dl (3.4-5.0); Anion Gap 12.7 mmol/L (6.8-13.8); BUN/Creatinine Ratio 10.2 (9.0-21.6); Bilirubin, Total 0.2 mg/dL (0.0-1.1); Ca. Corrected For Albumin 9.3 mg/dL (8.4-10.2); Calcium * 9.2 mg/dL (7.9-10.9); Carbon Dioxide 25.2 mmol/L (24-32.6); Potassium 3.9 mmol/L (3.4-4.6); Total Protein 7.1 gm/dL (6.2-8.2)
[2020-11-17 17:17] LABS: Hematocrit 36.1 % (37.0-47.0); Hemoglobin 11.8 gm/dL (12.5-16.0); Mean Cell Volume 76.6 fl (78-100); Mean Corpuscular Hemoglobin 25.1 pg (27-31); Mean Corpuscular Hgb Conc 32.7 g/dl (32-36); Platelet Count 137 K/mm3 (150-450); Red Blood Count 4.71 M/mm3 (4.2-5.4); White Blood Count 9.1 K/mm3 (4.0-10.5)
[2020-11-17 17:19] LABS: Total Cells Counted 100
[2020-11-17] MEDS ORDERED: MORPHINE SULFATE 2 MG/ML DISP.SYRIN IV ONE (17:38)
[2020-11-17 17:39] LABS: Anisocytosis 1+; Atypical (Reactive) Lymph 2 % (0-2); Band 3 % (0-2.0); Eosinophil 4 % (0-3); Giant Platelets Trace; Lymphocyte 7 % (20-51); Monocyte 4 % (0-9); Neutrophil 80 % (42-75); Neutrophil # 7.3 K/mm3 (1.3-6.0); Platelet Estimate Normal (NORMAL)
[2020-11-17 17:41] LABS: Toxic Granulation Trace
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
[2020-11-17] MEDS ORDERED: BUPIVACAINE HCL 50 ML VIAL IJ ONE ×2 (17:52→19:32)
[2020-11-17] MEDS ORDERED: MUPIROCIN 22 APPL TUBE TP ONE ×2 (17:52→21:13)
[2020-11-17 18:09] LABS: Urine Bilirubin Negative (NEGATIVE); Urine Blood Negative /ul (NEGATIVE); Urine Ketone Negative (NEGATIVE); Urine Nitrite Negative (NEGATIVE); Urine Protein Negative (NEGATIVE); Urine Specific Gravity 1.025 SP.GR. (1.005-1.010); Urine Urobilinogen Normal (NORMAL); Urine pH 5.5 pH (5.0-7.0)
[2020-11-17 18:24] LABS: Cocaine Ur Negative (NEGATIVE); Urine Barbiturate Negative (NEGATIVE); Urine Benzodiazepines Negative (NEGATIVE); Urine Opiates Negative (NEGATIVE); Urine PCP Negative (NEGATIVE); Urine THC Negative (NEGATIVE)
--- NOTE | 2020-11-17 18:30 | ANES ---
Anesthesia Pre Procedure Eval Vitals/Labs: Last Vital Signs Temp 35.6 C L 11/17/20 16:15 Pulse 91 11/17/20 18:01 Resp 18 11/17/20 18:01 BP 117/56 11/17/20 18:01 Pulse Ox 94 11/17/20 18:01 HOME MEDICATIONS alprazolam 0.25 mg tablet 0.25 mg PO DAILY PRN #30 tab 05/17/20 [Last Taken Unknown] escitalopram oxalate 10 mg tablet 10 mg PO DAILY #90 tab 05/17/20 [Last Taken Unknown] diphenhydrAMINE HCL [Benadryl] 25 mg PO HS 05/20/20 [Last Taken Unknown] levothyroxine 75 mcg tablet See Rx Instructions .ROUTE .COMPLEX #30 unknown measurement unit code: not specified 07/08/20 [Last Taken Unknown] omeprazole 20 mg capsule,delayed release 20 mg PO DAILY #90 cap 07/15/20 [Last Taken Unknown] Allergies/Adverse Reactions: Allergies Allergy/AdvReac Type Severity Reaction Status Date / Time penicillin G Allergy Severe Anaphylaxis Verified 11/17/20 16:16 Sulfa (Sulfonamide Allergy Mild SENSITIVE Verified 11/17/20 16:16 Antibiotics) SKIN Cephalosporins AdvReac Mild SKIN Verified 11/17/20 16:16 TINGLY AND SENSITIVE prednisone AdvReac hallucinati Verified 11/17/20 16:16 on - Planned Procedure Planned Procedure: laceration repair Medication List Reviewed:: Yes Allergies Verified: Yes Medical History (Last Reviewed 11/17/20 @ 18:29 by Noah Oswald CRNA) Vitamin B12 deficiency (Chronic) Skin tear of left upper extremity (Acute) Open wound of left hand (Acute) Cough syncope (Acute) Minor head injury with loss of consciousness (Acute) Avulsion of skin of forearm (Acute) Trouble breathing (Acute) Tracheostomy care (Acute) Fall (Acute) Spinous process fracture (Acute) Head injury (Acute) Nasal fracture (Acute) Choking episode (Acute) Hypoxia (Acute) Shortness of breath at rest (Resolved) Hypothyroid (Chronic) Tracheostomy dependent (Chronic) Abnormal CT of the abdomen (Resolved) Abnormal CT scan, colon (Resolved) GERD (gastroesophageal reflux disease) (Chronic) (Chronic) Anal fissure (Acute) Solar lentigo (Acute) Verrucous squamous cell carcinoma (Resolved) Rash (Acute) Shortness of breath dyspnea (Acute) UTI (urinary tract infection) (Acute) Upper respiratory infection (Acute) Acute UTI (Acute) COPD exacerbation (Acute) Constipation, slow transit (Acute) Chest wall pain (Acute) Neck pain on left side (Acute) Hemoptysis, unspecified (Acute) Dehydration (Acute) LAKESHA (acute kidney injury) (Resolved) Bacteremia (Acute) Leukocytosis (Resolved) E coli bacteremia (Acute) Lower extremity edema (Chronic) Chest pain (Acute) Anemia, B12 deficiency Onset Date: 2012 Anxiety Onset Date: 06/20/13 COPD (chronic obstructive pulmonary disease) Onset Date: 2012 Depression Onset Date: 06/20/13 GERD (gastroesophageal reflux disease) Onset Date: 06/20/13 Hypothyroid Onset Date: 06/20/13 Iron deficiency anemia Onset Date: 02/15/17 Obesity Onset Date: Unknown Osteoporosis Onset Date: Unknown Psoriasis Onset Date: 02/15/17 Vitamin B12 deficiency Onset Date: 06/20/13 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 Surgical History (Last Reviewed 11/17/20 @ 18:29 by Noah Oswald CRNA) Tracheostomy in place Onset Date: 2005 Tracheostomy status Onset Date: 2005 throat caner treated with radiation. History of colonoscopy Onset Date: ~07/05/[id number]-Nuqphjlo-kqiphrftijww. 10/29/15 [place]-normal. Recheck 5 yrs. 07/05/18 [place]-external hemorrhoids, diverticulosis. No follow up. History of esophagogastroduodenoscopy (EGD) Onset Date: 07/05/18 [place]-clotest negative, hiatal hernia, minimal benign reactive gastropathy/chemical gastritis. History of excision of lesion Onset Date: 07/26/18 Brian[place]-upper lip-skin cancer History of flexible sigmoidoscopy Onset Date: 06/18/07 Dr. Fox History of incision and drainage Onset Date: 12/25/11 Dr. 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 Unaware of any health issues Healthy adult Uncle Colon cancer 2 uncles-colon cancer-both diagnosed age 60's Grandfather Colon cancer Son Suicide and self-inflicted injury - Family Anesthesia History Family History:: no untoward family reactions to anesthesia, no familial bleeding tendencies, no family history of clotting disorders, no family history of premature - Airway/Neck/Teeth Mallampatti Score: 4 Thyromental (T-M) distance: > 6 cm Mandibulo Hyoid distance: > 3 cm - Respiratory Respiratory History: COPD Respiratory Physical: decreased breath sounds Smoking Status: Former smoker - Cardiovascular Tolerate Activity: Poor Heart Sounds: S1 & S2, Regular - Gastrointestinal NPO since: 1200 - Anesthesia Assessment and Plan ASA Class: PS, IV, E Anesthesia Type Plan: General ET
[2020-11-17] MEDS: RINGER'S SOLUTION,LACTATED 1,000 ML IV PRN ×2 (18:40→23:38)
[2020-11-17 18:50] LABS: Urine Appearance Clear (CLEAR); Urine Bacteria 1+; Urine Color Yellow; Urine Hyaline Cast TRACE /LPF; Urine RBC TRACE /hpf (0-5); Urine WBC 0-5 /hpf (0-5)
--- NOTE | 2020-11-17 22:12 | ANES ---
Post Anesthesia Discharge - Transfer of Care Transfer of Care handoff given to nurse: Yes - Discharge from PACU Discharge from PACU when meets criteria: Yes - Discharge to ASU Discharge to ASU-no complications/pt stable: Yes
[2020-11-17] MEDS: HYDROmorphone HCL 1 MG/ML DISP.SYRIN IV PRN (23:34)
[2020-11-18] MEDS: HYDROmorphone HCL 1 MG/ML DISP.SYRIN IV PRN ×4 (01:14→21:06)
[2020-11-18] MEDS ORDERED: BISACODYL 5 MG TABLET.DR PO ONE (08:36)
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
[2020-11-18] MEDS: RINGER'S SOLUTION,LACTATED 1,000 ML IV PRN ×2 (09:00→19:48)
[2020-11-18] MEDS: POLYETHYLENE GLYCOL 3350 17 GM PACKET PO SCH (09:02)
[2020-11-18] MEDS: PANTOPRAZOLE SODIUM 40 MG in NORMAL SALINE 100 ML IV SCH (09:02)
[2020-11-18] MEDS: MUPIROCIN 22 APPL TUBE TP SCH ×2 (09:02→20:30)
[2020-11-18] MEDS: LEVOTHYROXINE SODIUM 75 MCG TABLET PO SCH (09:02)
--- NOTE | 2020-11-18 09:05 | ANES ---
Post Anesthesia Assessment - Vital Signs Vitals: Last Vital Signs Temp 37.1 C 11/18/20 06:16 Pulse 103 H 11/18/20 06:16 Resp 24 H 11/18/20 06:16 BP 105/68 11/18/20 06:16 Pulse Ox 95 11/18/20 06:16 Airway Patency: Normal - Mental Status Level Of Consciousness: Awake - Pain Level Pain Score: 0 - N/V Assessment Nausea/Vomiting Presence: None Dehydration:: No
[2020-11-18] MEDS: oxyCODONE HCL/ACETAMINOPHEN 1 TAB TABLET PO PRN (10:48)
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
--- NOTE | 2020-11-18 19:27 | PN ---
Dictated Progress Note - Date and Time Seen: Date: 11/18/20 Time: 19:23 - Progress Note Narrative: Vital Signs - Last Taken Temp 37 C 11/18/20 18:29 Pulse 86 11/18/20 18:29 Resp 22 H 11/18/20 18:29 BP 82/49 L 11/18/20 18:29 Pulse Ox 94 11/18/20 18:29 Culture 11/17/20 17:55 Urine Culture - Preliminary Urine,Catheterized Gram Negative Bacilli Her vital signs have remained relatively stable today. She is more alert. She has been very resistive to cares and activities. She was seen by PT and OT and their recommendations were noted. I had her evaluated by Dr. Mary who changed her trach out to a cuffed tube with the tube deflated and has given orders for care and follow-up. I had a long discussion with her son Colten about post hospital care and he will be in contact with case management regarding her ultimate placement. It does not appear safe for her to return home alone so arrangements will need to be made. Her back pain seems to be fairly well controlled. Her facial lacerations are clean no new injuries have been discovered.
[2020-11-18] MEDS ORDERED: ALPRAZolam 0.25 MG TABLET PO ONE (22:00)
[2020-11-19] MEDS: oxyCODONE HCL/ACETAMINOPHEN 1 TAB TABLET PO PRN ×3 (02:16→14:25)
[2020-11-19] MEDS: LEVOTHYROXINE SODIUM 75 MCG TABLET PO SCH (07:04)
[2020-11-19] MEDS: RINGER'S SOLUTION,LACTATED 1,000 ML IV PRN ×3 (07:04→19:59)
[2020-11-19] MEDS: PANTOPRAZOLE SODIUM 40 MG in NORMAL SALINE 100 ML IV SCH (07:47)
[2020-11-19] MEDS: MUPIROCIN 22 APPL TUBE TP SCH ×2 (09:19→20:11)
[2020-11-19] MEDS: POLYETHYLENE GLYCOL 3350 17 GM PACKET PO SCH (09:19)
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
[2020-11-19] MEDS ORDERED: LEVOFLOXACIN IN DEXTROSE 5 % 750 MG/150 ML BAG IV SCH (12:15)
[2020-11-19 12:58] LABS: Hematocrit 31.3 % (37.0-47.0); Hemoglobin 10.1 gm/dL (12.5-16.0); Mean Cell Volume 78.3 fl (78-100); Mean Corpuscular Hemoglobin 25.3 pg (27-31); Mean Corpuscular Hgb Conc 32.3 g/dl (32-36); Platelet Count 124 K/mm3 (150-450); Red Cell Distribution Width 16.3 % (11.5-14.0); White Blood Count 15.4 K/mm3 (4.0-10.5)
[2020-11-19 13:05] LABS: Total Cells Counted 100
[2020-11-19 13:25] LABS: Anion Gap 10.8 mmol/L (6.8-13.8); BUN/Creatinine Ratio 11.5 (9.0-21.6); Bilirubin, Total 0.7 mg/dL (0.0-1.1); Ca. Corrected For Albumin 9.3 mg/dL (8.4-10.2); Calcium * 8.8 mg/dL (7.9-10.9); Potassium 3.8 mmol/L (3.4-4.6); Total Protein 6.5 gm/dL (6.2-8.2)
[2020-11-19] MEDS: ALPRAZolam 0.25 MG TABLET PO PRN ×2 (14:25→23:27)
[2020-11-19] MEDS: ESCITALOPRAM OXALATE 10 MG TAB PO SCH (14:27)
[2020-11-19 14:48] LABS: Anisocytosis 1+; Band 4 % (0-2.0); Lymphocyte 6 % (20-51); Monocyte 6 % (0-9); Neutrophil 84 % (42-75); Neutrophil # 12.9 K/mm3 (1.3-6.0); Platelet Estimate Normal (NORMAL)
[2020-11-19] MEDS: ACETYLCYSTEINE 100 MG/ML VIAL IH SCH ×3 (16:09→22:25)
[2020-11-19] MEDS: ALBUTEROL SULFATE/IPRATROPIUM 3 ML NEBU IH SCH ×4 (16:09→22:26)
[2020-11-19] MEDS: MEROPENEM 1 GM in NORMAL SALINE 100 ML IV SCH (17:17)
[2020-11-19] MEDS: BISACODYL 5 MG TABLET.DR PO SCH (17:55)
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
[2020-11-19] MEDS: HYDROmorphone HCL 2 MG TABLET PO PRN (20:09)
[2020-11-19] MEDS: ACETAMINOPHEN 1,000 MG/100 ML BTL IV PRN (23:27)
[2020-11-20] MEDS: ACETYLCYSTEINE 100 MG/ML VIAL IH SCH ×3 (02:10→18:00)
[2020-11-20] MEDS: ALBUTEROL SULFATE/IPRATROPIUM 3 ML NEBU IH SCH ×6 (02:10→22:31)
[2020-11-20] MEDS ORDERED: ONDANSETRON HCL 4 MG TABLET PO PRN (03:14)
[2020-11-20] MEDS: MEROPENEM 1 GM in NORMAL SALINE 100 ML IV SCH ×2 (04:47→16:10)
[2020-11-20 06:47] LABS: Hematocrit 29.8 % (37.0-47.0); Hemoglobin 9.5 gm/dL (12.5-16.0); Mean Cell Volume 78.6 fl (78-100); Mean Corpuscular Hemoglobin 25.1 pg (27-31); Mean Corpuscular Hgb Conc 31.9 g/dl (32-36); Mean Platelet Volume 11.7 fl (8-12.5); Neutrophil # 10.7 K/mm3 (1.3-6.0); Neutrophil % 85.2 % (42-75.0); Platelet Count 125 K/mm3 (150-450); Red Blood Count 3.79 M/mm3 (4.2-5.4); Red Cell Distribution Width 16.4 % (11.5-14.0); White Blood Count 12.6 K/mm3 (4.0-10.5)
[2020-11-20 06:49] LABS: Albumin * 2.8 gm/dl (3.4-5.0); Bilirubin, Total 0.4 mg/dL (0.0-1.1); Ca. Corrected For Albumin 8.9 mg/dL (8.4-10.2); Calcium * 8.3 mg/dL (7.9-10.9); Carbon Dioxide 25.7 mmol/L (24-32.6); Potassium 3.7 mmol/L (3.4-4.6); Total Protein 6.4 gm/dL (6.2-8.2)
[2020-11-20] MEDS: RINGER'S SOLUTION,LACTATED 1,000 ML IV PRN ×2 (06:56→17:07)
[2020-11-20] MEDS: HYDROmorphone HCL 2 MG TABLET PO PRN ×3 (06:56→22:45)
[2020-11-20] MEDS: ALPRAZolam 0.25 MG TABLET PO PRN ×2 (06:56→18:43)
[2020-11-20] MEDS: LEVOTHYROXINE SODIUM 75 MCG TABLET PO SCH (06:56)
[2020-11-20] MEDS ORDERED: ACETYLCYSTEINE 100 MG/ML VIAL IH SCH (10:00)
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
[2020-11-20] MEDS: MUPIROCIN 22 APPL TUBE TP SCH ×2 (10:08→20:58)
[2020-11-20] MEDS: BISACODYL 5 MG TABLET.DR PO SCH (10:08)
[2020-11-20] MEDS: ESCITALOPRAM OXALATE 10 MG TAB PO SCH (10:08)
[2020-11-20] MEDS: POLYETHYLENE GLYCOL 3350 17 GM PACKET PO SCH (10:09)
[2020-11-20] MEDS: PANTOPRAZOLE SODIUM 40 MG in NORMAL SALINE 100 ML IV SCH (10:09)
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
[2020-11-20] MEDS: ACETAMINOPHEN 1,000 MG/100 ML BTL IV PRN (10:58)
[2020-11-21] MEDS: ACETAMINOPHEN 1,000 MG/100 ML BTL IV PRN ×3 (01:04→20:37)
[2020-11-21] MEDS: ALBUTEROL SULFATE/IPRATROPIUM 3 ML NEBU IH SCH ×6 (02:07→22:26)
[2020-11-21] MEDS: ACETYLCYSTEINE 100 MG/ML VIAL IH SCH ×3 (02:07→18:39)
[2020-11-21] MEDS: ALPRAZolam 0.25 MG TABLET PO PRN ×2 (02:44→13:58)
[2020-11-21] MEDS: MEROPENEM 1 GM in NORMAL SALINE 100 ML IV SCH ×2 (04:09→17:15)
[2020-11-21] MEDS: HYDROmorphone HCL 2 MG TABLET PO PRN ×2 (04:17→09:22)
[2020-11-21] MEDS: POLYETHYLENE GLYCOL 3350 17 GM PACKET PO SCH (08:49)
[2020-11-21] MEDS: ESCITALOPRAM OXALATE 10 MG TAB PO SCH (08:49)
[2020-11-21] MEDS: MUPIROCIN 22 APPL TUBE TP SCH ×2 (08:50→20:36)
[2020-11-21] MEDS: PANTOPRAZOLE SODIUM 40 MG in NORMAL SALINE 100 ML IV SCH (08:51)
[2020-11-21] MEDS: LEVOTHYROXINE SODIUM 75 MCG TABLET PO SCH (08:51)
[2020-11-21] MEDS: BISACODYL 5 MG TABLET.DR PO SCH (08:51)
--- NOTE | 2020-11-21 10:12 | PN ---
Dictated Progress Note - Date and Time Seen: Date: 11/21/20 Time: 10:09 - Progress Note Narrative: Vital Signs - Last Taken Temp 36.5 C 11/21/20 08:53 Pulse 96 11/21/20 09:59 Resp 16 11/21/20 09:59 BP 120/59 11/21/20 08:53 Pulse Ox 97 11/21/20 09:59 She was able to sleep. She had a bowel movement and has promised to eat more during the day today. Her secretions are thinning and although she did desaturate with suctioning her saturations remained good. Her pain appears controlled. Her lacerations are healing. We will continue current antibiotic. Will encourage to be out of bed and increase p.o. intake. I discussed her case with Dr. Siegel We will investigate post discharge placement more with case management tomorrow.
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
[2020-11-21] MEDS: HYDROcodone/ACETAMINOPHEN 1 EACH TABLET PO PRN ×2 (12:41→19:26)
[2020-11-22] MEDS: ALBUTEROL SULFATE/IPRATROPIUM 3 ML NEBU IH SCH ×8 (00:40→19:21)
[2020-11-22] MEDS: ACETYLCYSTEINE 100 MG/ML VIAL IH SCH ×4 (02:07→19:23)
[2020-11-22] MEDS: ALPRAZolam 0.25 MG TABLET PO PRN ×3 (02:18→19:15)
[2020-11-22] MEDS: HYDROcodone/ACETAMINOPHEN 1 EACH TABLET PO PRN ×4 (02:18→19:15)
[2020-11-22] MEDS: MEROPENEM 1 GM in NORMAL SALINE 100 ML IV SCH ×2 (04:27→17:24)
[2020-11-22 06:39] LABS: Hematocrit 28.9 % (37.0-47.0); Hemoglobin 9.2 gm/dL (12.5-16.0); Mean Cell Volume 78.1 fl (78-100); Mean Corpuscular Hemoglobin 24.9 pg (27-31); Mean Corpuscular Hgb Conc 31.8 g/dl (32-36); Mean Platelet Volume 11.5 fl (8-12.5); Neutrophil # 4.2 K/mm3 (1.3-6.0); Neutrophil % 66.1 % (42-75.0); Platelet Count 166 K/mm3 (150-450); Red Cell Distribution Width 16.3 % (11.5-14.0); White Blood Count 6.4 K/mm3 (4.0-10.5)
[2020-11-22] MEDS: PANTOPRAZOLE SODIUM 40 MG in NORMAL SALINE 100 ML IV SCH (08:38)
[2020-11-22] MEDS: POLYETHYLENE GLYCOL 3350 17 GM PACKET PO SCH (08:38)
[2020-11-22] MEDS: LEVOTHYROXINE SODIUM 75 MCG TABLET PO SCH (08:38)
[2020-11-22] MEDS: MUPIROCIN 22 APPL TUBE TP SCH (08:38)
[2020-11-22] MEDS: ESCITALOPRAM OXALATE 10 MG TAB PO SCH (08:38)
[2020-11-22] MEDS: BISACODYL 5 MG TABLET.DR PO SCH (08:39)
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
--- NOTE | 2020-11-22 17:13 | PN ---
Dictated Progress Note - Date and Time Seen: Date: 11/22/20 - Progress Note Narrative: Vital Signs - Last Taken Temp 36.6 C 11/22/20 14:59 Pulse 78 11/22/20 14:59 Resp 16 11/22/20 14:59 BP 121/70 11/22/20 14:59 Pulse Ox 94 11/22/20 14:59 Abnormal/Pending Laboratory Last 24 HRS 11/22/20 06:35 RBC 3.70 L Hgb 9.2 L Hct 28.9 L MCH 24.9 L MCHC 31.8 L RDW 16.3 H Immature Gran % (Auto) 0.60 H Immature Gran # (Auto) 0.04 H Lymphocytes % 9.4 L Monocytes % 12.5 H Eosinophils % 10.5 H Lymphocytes # 0.60 L She is now POD 5 following repair of complex facial lacerations. She also has a left lower lobe pneumonia and ESBL UTI. She has been somewhat resistant to mobilization. She has taken some p.o. intake and had a bowel movement. Her lacerations appear to be healing well. She has developed some ecchymoses but no evidence of infection or collection. Current efforts are directed toward placement. Sutures could potentially be removed 11/26/2019. We will continue to follow
[2020-11-23] MEDS: HYDROcodone/ACETAMINOPHEN 1 EACH TABLET PO PRN ×5 (00:37→22:01)
[2020-11-23] MEDS: ALBUTEROL SULFATE/IPRATROPIUM 3 ML NEBU IH SCH ×6 (03:09→23:14)
[2020-11-23] MEDS: ACETYLCYSTEINE 100 MG/ML VIAL IH SCH ×3 (03:10→18:30)
[2020-11-23] MEDS: MEROPENEM 1 GM in NORMAL SALINE 100 ML IV SCH ×2 (04:19→16:32)
[2020-11-23 06:33] LABS: Hematocrit 28.4 % (37.0-47.0); Hemoglobin 9.1 gm/dL (12.5-16.0); Mean Cell Volume 78.7 fl (78-100); Mean Corpuscular Hemoglobin 25.2 pg (27-31); Mean Platelet Volume 11.1 fl (8-12.5); Neutrophil # 4.8 K/mm3 (1.3-6.0); Neutrophil % 65.2 % (42-75.0); Platelet Count 164 K/mm3 (150-450); Red Blood Count 3.61 M/mm3 (4.2-5.4); Red Cell Distribution Width 16.4 % (11.5-14.0); White Blood Count 7.3 K/mm3 (4.0-10.5)
[2020-11-23 06:48] LABS: Albumin * 2.6 gm/dl (3.4-5.0); Anion Gap 8.1 mmol/L (6.8-13.8); BUN/Creatinine Ratio 13.3 (9.0-21.6); Bilirubin, Total 0.3 mg/dL (0.0-1.1); Ca. Corrected For Albumin 9.3 mg/dL (8.4-10.2); Calcium * 8.5 mg/dL (7.9-10.9); Carbon Dioxide 30.3 mmol/L (24-32.6); Potassium 3.4 mmol/L (3.4-4.6); Total Protein 5.9 gm/dL (6.2-8.2)
[2020-11-23] MEDS: LEVOTHYROXINE SODIUM 75 MCG TABLET PO SCH (07:06)
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
[2020-11-23] MEDS: PANTOPRAZOLE SODIUM 40 MG in NORMAL SALINE 100 ML IV SCH (09:01)
[2020-11-23] MEDS: POLYETHYLENE GLYCOL 3350 17 GM PACKET PO SCH (09:07)
[2020-11-23] MEDS: BISACODYL 5 MG TABLET.DR PO SCH (09:08)
[2020-11-23] MEDS: ESCITALOPRAM OXALATE 10 MG TAB PO SCH (09:08)
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
[2020-11-23] MEDS: ALPRAZolam 0.25 MG TABLET PO PRN (22:01)
[2020-11-24] MEDS: HYDROcodone/ACETAMINOPHEN 1 EACH TABLET PO PRN ×3 (02:24→10:48)
[2020-11-24] MEDS: ALBUTEROL SULFATE/IPRATROPIUM 3 ML NEBU IH SCH ×3 (03:26→10:10)
[2020-11-24] MEDS: ACETYLCYSTEINE 100 MG/ML VIAL IH SCH ×2 (03:27→10:10)
[2020-11-24] MEDS: MEROPENEM 1 GM in NORMAL SALINE 100 ML IV SCH (04:05)
[2020-11-24] MEDS: LEVOTHYROXINE SODIUM 75 MCG TABLET PO SCH (06:44)
[2020-11-24] MEDS: BISACODYL 5 MG TABLET.DR PO SCH (09:13)
[2020-11-24] MEDS: PANTOPRAZOLE SODIUM 40 MG in NORMAL SALINE 100 ML IV SCH (09:14)
[2020-11-24] MEDS: POLYETHYLENE GLYCOL 3350 17 GM PACKET PO SCH (09:14)
[2020-11-24] MEDS: ESCITALOPRAM OXALATE 10 MG TAB PO SCH (09:14)
[2020-11-24 12:34] VITALS: BP 112/52
== END 2020-11-24 12:10 | DRG 853 ==
LOC: ER 16:15 → MS 17:00 → AMB 17:00
PROVIDERS: ADMIT Surgery; ATTEND Internal Medicine
DX: J96.01 Acute respiratory failure with hypoxia; J44.9 Chronic obstructive pulmonary disease, unspecified; F41.9 Anxiety disorder, unspecified; S61.011A Laceration without foreign body of right thumb without damage to nail, initial encounter; J18.9 Pneumonia, unspecified organism; K59.01 Slow transit constipation; S61.211A Laceration without foreign body of left index finger without damage to nail, initial encounter; S01.81XA Laceration without foreign body of other part of head, initial encounter; S22.050A Wedge compression fracture of T5-T6 vertebra, initial encounter for closed fracture; V49.88XA Car occupant (driver) (passenger) injured in other specified transport accidents, initial encounter; N39.0 Urinary tract infection, site not specified; K21.9 Gastro-esophageal reflux disease without esophagitis; A41.9 Sepsis, unspecified organism; S01.01XA Laceration without foreign body of scalp, initial encounter; B96.29 Other Escherichia coli [E. coli] as the cause of diseases classified elsewhere; N18.30 Chronic kidney disease, stage 3 unspecified; S01.311A Laceration without foreign body of right ear, initial encounter; S01.411A Laceration without foreign body of right cheek and temporomandibular area, initial encounter; E03.9 Hypothyroidism, unspecified; J95.03 Malfunction of tracheostomy stoma; S11.81XA Laceration without foreign body of other specified part of neck, initial encounter